=== PATIENT | male | born 1975 | race Caucasian/White ===

== ENCOUNTER 2019-10-08 10:53 | Emergency (ER) | payer BC ==
[~2019-10-08] VITALS: Ht 167.6 cm; Wt 83.9 kg
[~2019-10-08 10:53] MED LIST: ERYT.5TO OD
[2019-10-08] MEDS ORDERED: Vibramycin100 MG PO (11:53)
[2019-10-08] MEDS ORDERED: Sudogest60 MG PO (11:53)
== END 2019-10-08 12:11 | disposition home or self-care (01) ==
LOC: ER 10:53
DX: J18.9 Pneumonia, unspecified organism (principal); J32.9 Chronic sinusitis, unspecified
CPT/HCPCS: 71046; 99283-25

== ENCOUNTER 2021-09-02 00:22 | Emergency (ER) | payer BC ==
[~2021-09-02] VITALS: Ht 167.6 cm; Wt 86.2 kg
[~2021-09-02 00:22] MED LIST changes: +Sudogest60 MG PO; +Vibramycin100 MG PO
[2021-09-02] MEDS ORDERED: IBUP600 PO (03:50)
== END 2021-09-02 04:21 | disposition home or self-care (01) ==
LOC: ER 00:22
DX: M25.512 Pain in left shoulder (principal)
CPT/HCPCS: 73030; 96372; 99283-25; A9270; J1885

== ENCOUNTER 2024-12-26 19:23 | Emergency (ER) | payer BC ==
[~2024-12-26] VITALS: Ht 167.6 cm; Wt 83.9 kg
[~2024-12-26 19:23] MED LIST changes: +IBUP600 PO
[2024-12-26] MEDS ORDERED: Ketorolac Tromethamine 30mg Vial IM ONE (20:20)
[2024-12-26 22:00] VITALS: BP 117/75
[2024-12-26] MEDS ORDERED: GABA300 PO (22:43)
[2024-12-26] MEDS ORDERED: FAMO20 PO (22:43)
[2024-12-26] MEDS ORDERED: Robaxin750 MG PO (22:43)
[2024-12-26] MEDS ORDERED: IBUP600 PO (22:43)
== END 2024-12-26 23:07 | disposition home or self-care (01) ==
LOC: ER 19:23
DX: M48.07 Spinal stenosis, lumbosacral region (principal); M54.42 Lumbago with sciatica, left side; M51.27 Other intervertebral disc displacement, lumbosacral region; I10 Essential (primary) hypertension; Z79.1 Long term (current) use of non-steroidal anti-inflammatories (NSAID)
CPT/HCPCS: 72131; 96372; 99283-25; J1885